=== PATIENT | female | born 1985 | race Caucasian/White ===

== ENCOUNTER 2018-12-29 17:28 | Emergency (ER) | payer OTHER ==
[~2018-12-29 17:28] MED LIST: APAP/HYDROCODON1 T13 PO; CIPROFLOXACIN500 MG PO
[2018-12-29 19:18] VITALS: BP 115/79
== END 2018-12-29 19:18 | disposition home or self-care (01) ==
LOC: ED 17:28
DX: S39.012A Strain of muscle, fascia and tendon of lower back, initial encounter (principal); N39.0 Urinary tract infection, site not specified; X58.XXXA Exposure to other specified factors, initial encounter; Y93.89 Activity, other specified; Y92.89 Other specified places as the place of occurrence of the external cause; Y99.8 Other external cause status
CPT/HCPCS: J1885; Q0162

== ENCOUNTER 2019-02-02 20:03 | Emergency (ER) | payer OTHER ==
[~2019-02-02] VITALS: Ht 154.9 cm; Wt 104.9 kg
[2019-02-02 20:12] VITALS: Ht 154.9 cm; Wt 104.9 kg
[2019-02-02 21:05] LABS: BASOPHIL % 0.6 % (0-2); PLATELET COUNT 274 x10^3mcL (130-400)
[2019-02-02 21:18] LABS: BILIRUBIN TOTAL 0.3 mg/dL (0.20-1.00); CALCIUM 9.1 mg/dL (8.5-10.1); CARBON DIOXIDE 31.6 mmol/L (21-32); POTASSIUM SERUM 3.7 mmol/L (3.5-5.1); TOTAL PROTEIN, SERUM 6.8 g/dL (6.4-8.2)
[2019-02-02 21:21] LABS: ALBUMIN 2.9 g/dL (3.4-5.0); CREATININE SERUM 13.2 mg/dL (0.6-1.0)
[2019-02-02 22:02] VITALS: BP 108/66
== END 2019-02-02 23:01 | disposition home or self-care (01) ==
LOC: ED 20:03
PROVIDERS: Emergency Medicine
DX: L03.311 Cellulitis of abdominal wall (principal); I12.9 Hypertensive chronic kidney disease with stage 1 through stage 4 chronic kidney disease, or unspecified chronic kidney disease; N18.9 Chronic kidney disease, unspecified; I10 Essential (primary) hypertension
CPT/HCPCS: 36415; Q0092

== ENCOUNTER 2019-03-18 21:42 | Emergency (ER) | payer OTHER ==
[~2019-03-18] VITALS: Ht 154.9 cm; Wt 104.3 kg
[2019-03-18 22:02] VITALS: Ht 154.9 cm; Wt 104.3 kg
[2019-03-18 23:53] LABS: BASOPHIL % 0 % (0-2); PLATELET COUNT 155 x10^3mcL (130-400); RED CELL DISTRIBUTION WIDTH 20.5 % (11.5-14.5)
[2019-03-19 00:15] LABS: rbc morphology (normal/abnorm) ABNORMAL (NORMAL)
[2019-03-19 00:22] LABS: CARBON DIOXIDE 25.7 mmol/L (21-32); POTASSIUM SERUM 4.4 mmol/L (3.5-5.1)
[2019-03-19 00:23] LABS: ALBUMIN 3.1 g/dL (3.4-5.0); BILIRUBIN TOTAL 0.5 mg/dL (0.20-1.00); CALCIUM 8.5 mg/dL (8.5-10.1); TOTAL PROTEIN, SERUM 6.7 g/dL (6.4-8.2)
[2019-03-19 00:26] LABS: CREATININE SERUM 15.1 mg/dL (0.6-1.0)
[2019-03-19 00:40] LABS: microscopic required? YES; urine erythrocyte 3+ (NEGATIVE)
[2019-03-19 03:04] VITALS: BP 170/109
== END 2019-03-19 03:04 | disposition home or self-care (01) ==
LOC: ED 21:42
PROVIDERS: Emergency Medicine
DX: N39.0 Urinary tract infection, site not specified (principal); I10 Essential (primary) hypertension; Z98.890 Other specified postprocedural states
CPT/HCPCS: 87804; J2270; J2405; J7030

== ENCOUNTER 2019-03-31 17:31 | Emergency (ER) | payer OTHER ==
[~2019-03-31] VITALS: Ht 154.9 cm; Wt 98.4 kg
[2019-03-31 17:36] VITALS: BP 167/94; Ht 154.9 cm; Wt 98.4 kg
== END 2019-03-31 17:49 | disposition home or self-care (01) ==
LOC: ED 17:31
DX: R04.0 Epistaxis (principal)

== ENCOUNTER 2019-04-10 20:03 | Emergency (ER) | payer OTHER ==
[~2019-04-10] VITALS: Ht 157.5 cm; Wt 101.6 kg
[2019-04-10 20:24] VITALS: Ht 157.5 cm; Wt 101.6 kg
[2019-04-10 23:58] LABS: CALCIUM 8.1 mg/dL (8.5-10.1); CARBON DIOXIDE 24.3 mmol/L (21-32); CREATININE SERUM 1.9 mg/dL (0.6-1.0); POTASSIUM SERUM 4.1 mmol/L (3.5-5.1)
[2019-04-11 00:23] VITALS: BP 168/100
[2019-04-11 00:36] LABS: ALBUMIN 2.7 g/dL (3.4-5.0); BILIRUBIN TOTAL 0.4 mg/dL (0.20-1.00)
== END 2019-04-11 00:23 | disposition home or self-care (01) ==
LOC: ED 20:03
PROVIDERS: Emergency Medicine
DX: S39.91XA Unspecified injury of abdomen, initial encounter (principal); I10 Essential (primary) hypertension; Z94.0 Kidney transplant status; V49.9XXA Car occupant (driver) (passenger) injured in unspecified traffic accident, initial encounter; Y93.89 Activity, other specified; Y92.488 Other paved roadways as the place of occurrence of the external cause; Y99.8 Other external cause status
CPT/HCPCS: 36415; Q0092

== ENCOUNTER 2019-04-24 22:42 | Emergency (ER) | payer OTHER ==
[~2019-04-24] VITALS: Ht 157.5 cm; Wt 102.5 kg
[2019-04-24 23:19] VITALS: Ht 157.5 cm; Wt 102.5 kg
[2019-04-25 01:30] LABS: microscopic required? NO
[2019-04-25 01:36] LABS: urine erythrocyte NEGATIVE (NEGATIVE)
[2019-04-25 02:33] LABS: BASOPHIL % 0.2 % (0-2); PLATELET COUNT 190 x10^3mcL (130-400); RED CELL DISTRIBUTION WIDTH 18.2 % (11.5-14.5)
[2019-04-25 02:54] LABS: CALCIUM 8.6 mg/dL (8.5-10.1); CARBON DIOXIDE 24.3 mmol/L (21-32); CREATININE SERUM 1.5 mg/dL (0.6-1.0); POTASSIUM SERUM 4.9 mmol/L (3.5-5.1)
[2019-04-25 03:08] LABS: BILIRUBIN TOTAL 0.19 mg/dL (0.20-1.00); TOTAL PROTEIN, SERUM 7.6 g/dL (6.4-8.2)
[2019-04-25 03:13] LABS: ALBUMIN 2.9 g/dL (3.4-5.0)
[2019-04-25 03:53] VITALS: BP 152/94
== END 2019-04-25 03:53 | disposition home or self-care (01) ==
LOC: ED 22:42
PROVIDERS: Emergency Medicine
DX: K42.9 Umbilical hernia without obstruction or gangrene (principal); I10 Essential (primary) hypertension; Z98.890 Other specified postprocedural states
CPT/HCPCS: 36415

== ENCOUNTER 2019-09-14 14:57 | Emergency (ER) | payer OTHER ==
[~2019-09-14] VITALS: Ht 162.6 cm; Wt 103.9 kg
[2019-09-14 15:12] VITALS: Ht 162.6 cm; Wt 103.9 kg
[2019-09-14 15:51] LABS: BASOPHIL % 0.5 % (0-2); PLATELET COUNT 367 x10^3mcL (130-400); RED CELL DISTRIBUTION WIDTH 13.7 % (11.5-14.5)
[2019-09-14 16:07] LABS: CALCIUM 9.7 mg/dL (8.5-10.1); CARBON DIOXIDE 25.1 mmol/L (21-32); CREATININE SERUM 1.2 mg/dL (0.6-1.0); POTASSIUM SERUM 4.6 mmol/L (3.5-5.1)
[2019-09-14 16:11] LABS: ALBUMIN 3.9 g/dL (3.4-5.0); BILIRUBIN TOTAL 0.31 mg/dL (0.20-1.00); TOTAL PROTEIN, SERUM 7.7 g/dL (6.4-8.2)
[2019-09-14 16:28] LABS: T3 TOTAL 1.64 ng/mL
[2019-09-14 16:38] LABS: FREE T4 1.12 ng/dL (0.76-1.46); FREE THYROXINE INDEX 2.7 ug/dL (1.4-4.5); T4(THYROXINE) 8.4 ug/dL (4.7-13.3)
[2019-09-14 17:30] VITALS: BP 108/55
== END 2019-09-14 17:30 | disposition home or self-care (01) ==
LOC: ED 14:57
PROVIDERS: Emergency Medicine
DX: R07.89 Other chest pain (principal); I10 Essential (primary) hypertension; R00.2 Palpitations; R06.02 Shortness of breath; R51 Headache; Z94.0 Kidney transplant status
CPT/HCPCS: 83880; 84439; Q0092

== ENCOUNTER 2020-01-23 17:55 | Emergency (ER) | payer OTHER, SELFPAY ==
[~2020-01-23] VITALS: Ht 162.6 cm; Wt 111.6 kg
[2020-01-23 17:56] VITALS: BP 145/108; Ht 162.6 cm; Wt 111.6 kg
== END 2020-01-23 19:30 | disposition home or self-care (01) ==
LOC: ED 17:55
DX: R50.9 Fever, unspecified (principal); J02.9 Acute pharyngitis, unspecified; I10 Essential (primary) hypertension; Z20.828 Contact with and (suspected) exposure to other viral communicable diseases; Z94.0 Kidney transplant status
CPT/HCPCS: U0003